=== PATIENT | male | born 1980 | race Caucasian/White ===

== ENCOUNTER 2021-03-17 14:32 | Emergency (ER) | payer SELFPAY ==
[2021-03-17] MEDS ORDERED: CYCLOBENZAPRINE10 MG PO (17:36)
[2021-03-17 18:30] VITALS: BP 1106/65
[2021-03-17] MEDS ORDERED: ZOFRAN4 MG/TAB PO (19:44)
== END 2021-03-17 18:43 | disposition home or self-care (01) | DRG 563 ==
LOC: ED 14:32
DX: S39.012A Strain of muscle, fascia and tendon of lower back, initial encounter (principal); S16.1XXA Strain of muscle, fascia and tendon at neck level, initial encounter; S29.012A Strain of muscle and tendon of back wall of thorax, initial encounter; F17.210 Nicotine dependence, cigarettes, uncomplicated; X50.0XXA Overexertion from strenuous movement or load, initial encounter; Y93.89 Activity, other specified; Y92.89 Other specified places as the place of occurrence of the external cause